=== PATIENT | male | born 2000 | race Hispanic/Latino ===

== ENCOUNTER 2021-02-12 20:46 | Emergency (ER) | payer OTHER | END 2021-02-12 21:36 | LOC: ERS 20:46 | DX: F12.10 Cannabis abuse, uncomplicated (principal) | CPT/HCPCS: 36415; 99282 ==

== ENCOUNTER 2023-04-29 05:22 | Inpatient (IN) | payer OTHER, SELFPAY ==
[2023-04-29 06:00] LABS: Bilirubin Negative (Negative); Blood, Urine Negative (Negative); CAUTI Indications for Culture Pelvic or flank pain; Clarity Turbid (Clear); Glucose, Urine (Dipstick) Normal (Negative); Ketone, Urine Trace mg/dL (Negative); Leukocyte Negative Leu/uL (Negative); Nitrite Negative (Negative); Protein, Urine (Dipstick) 70 mg/dL (Neg-Trace); RBC/HPF 0-3 HPF (0-3); Specific Gravity, Urine 1.034 (1.002-1.036); Squamous Epithelial 0-3 HPF (0-3); Urobilinogen Normal mg/dL (Less than 2); pH, Urine 5.5 (5.0-9.0)
[2023-04-29 06:02] LABS: #Basophils 0.1 thou/uL (0.0-0.2); #Monocytes 1.1 thou/uL (0.11-0.59); #Neutrophils 8.6 thou/uL (1.40-6.50); %Basophils 0.4 % (0.0-1.0); %Eosinophils 0.1 % (0.0-10.0); %Lymphocytes 15.3 % (21.0-51.0); %Monocytes 9.4 % (0.0-10.0); %Neutrophils 74.5 % (42.0-75.0); Hematocrit 52.6 % (42.0-52.0); Hemoglobin 18.1 g/dL (14.0-18.0); Mean Corpuscular HGB CONC 34.4 g/dL (32.0-36.0); Mean Corpuscular Hemoglobin 30.7 pg (27.0-31.0); Mean Corpuscular Volume 89.2 fl (78.0-98.0); Mean Platelet Volume 10.9 fL (7.4-10.4); Platelet Count 277 10x3/uL (130-400); RBC Distribution Width 11.8 % (11.5-14.5); White Blood Cell (WBC) Count 11.6 10x3/uL (4.8-10.8)
[2023-04-29 06:04] LABS: Amphetamine Detected (NotDetected); Barbiturates Screen Not Detected (NotDetected); Benzodiazepine Screen Not Detected (NotDetected); Cocaine Metabolite Screen Not Detected (NotDetected); Methadone Not Detected (NotDetected); Methamphetamine Detected (NotDetected); Opiate Screen Not Detected (NotDetected); Oxycodone Screen Not Detected (NotDetected); Phencyclidine (PCP) Not Detected (NotDetected); THC/Cannabinoid Screen Not Detected (NotDetected); Tricyclic Screen Not Detected (NotDetected)
[2023-04-29 06:10] LABS: Bacteria/HPF 1+ HPF (None Seen)
[2023-04-29 06:11] LABS: Urine Culture Reflex No No
[2023-04-29 06:25] LABS: ALT (SGPT) 94 U/L (8-55); AST (SGOT) 53 U/L (5-34); Albumin 5.9 g/dL (3.5-5.0); Alkaline Phosphatase 108 U/L (40-110); Anion Gap 27 mmol/L (10-20); BUN (Urea Nitrogen) 42 mg/dL (8.9-20.6); Bilirubin, Total 0.7 mg/dL (0.2-1.2); CK (CPK) 143 U/L (30-200); Calc. Creatinine Clearance 0 mL/min (70-130); Calcium 11.1 mg/dL (7.8-10.44); Carbon Dioxide 20 mmol/L (22-29); Chloride 96 mmol/L (98-107); Estimated GFR 21; Globulin 4.6 g/dL (2.4-3.5); Glucose 117 mg/dL (70-105); Potassium 4.7 mmol/L (3.5-5.1); Protein, Total 10.5 g/dL (6.0-8.3); Sodium 138 mmol/L (136-145)
[2023-04-29] MEDS ORDERED: Ondansetron ODT 4 MG TAB PO PRN (08:21)
[2023-04-29] MEDS ORDERED: Ondansetron PF 4 MG/2 ML Vial IVP PRN (08:21)
[2023-04-29] MEDS ORDERED: Acetaminophen 325 MG TAB PO PRN (08:21)
[2023-04-29] MEDS ORDERED: Thiamine 100 MG TAB ONE (08:32)
[2023-04-29] MEDS: Thiamine 100 MG TAB PO SCH (08:45)
[2023-04-29] MEDS: Sodium Chloride 0.9% 1,000 ML IV SCH ×2 (08:49→17:25)
[2023-04-30] MEDS: Sodium Chloride 0.9% 1,000 ML IV SCH ×2 (01:42→09:50)
[2023-04-30 07:04] LABS: #Eosinphils 0.3 thou/uL (0.0-0.7); #Monocytes 0.6 thou/uL (0.11-0.59); #Neutrophils 1.6 thou/uL (1.40-6.50); %Basophils 0.4 % (0.0-1.0); %Eosinophils 5.3 % (0.0-10.0); %Lymphocytes 54.8 % (21.0-51.0); %Monocytes 10.6 % (0.0-10.0); %Neutrophils 28.5 % (42.0-75.0); Mean Corpuscular HGB CONC 33.5 g/dL (32.0-36.0); Mean Corpuscular Hemoglobin 30.3 pg (27.0-31.0); Mean Corpuscular Volume 90.5 fl (78.0-98.0); Mean Platelet Volume 10.8 fL (7.4-10.4); Platelet Count 174 10x3/uL (130-400); RBC Distribution Width 11.9 % (11.5-14.5); Red Blood Cell (RBC) Count 4.02 mill/uL (4.70-6.10); White Blood Cell (WBC) Count 5.5 10x3/uL (4.8-10.8)
[2023-04-30 07:18] LABS: Hematocrit 36.4 % (42.0-52.0); Hemoglobin 12.2 g/dL (14.0-18.0)
[2023-04-30 07:47] LABS: Anion Gap 11 mmol/L (10-20); BUN (Urea Nitrogen) 28 mg/dL (8.9-20.6); Calc. Creatinine Clearance 0 mL/min (70-130); Calcium 8.2 mg/dL (7.8-10.44); Carbon Dioxide 24 mmol/L (22-29); Chloride 109 mmol/L (98-107); Estimated GFR 126; Glucose 100 mg/dL (70-105); Potassium 3.5 mmol/L (3.5-5.1); Sodium 140 mmol/L (136-145)
[2023-04-30 08:07] VITALS: TEMP 97.7
[2023-04-30 08:12] VITALS: BP 104/68
[2023-04-30] MEDS: Thiamine 100 MG TAB PO SCH (09:50)
== END 2023-04-30 14:48 | disposition home or self-care (01) | DRG 641 ==
LOC: ERS 05:22 → OBSVTOIN 07:26 → ERHOLD 07:26 → T4-B 13:10
PROVIDERS: ADMIT Internal Medicine; ATTEND Internal Medicine Critical Care Medicine
DX: E86.0 Dehydration (principal); N17.9 Acute kidney failure, unspecified; F15.10 Other stimulant abuse, uncomplicated; R07.89 Other chest pain; F10.20 Alcohol dependence, uncomplicated
CPT/HCPCS: 36415; 80048; 80053; 80306; 81001; 82550; 84484; 85025; 87086; 93005; J7050